=== PATIENT | male | born 1980 | race Caucasian/White ===

== ENCOUNTER 2019-04-11 18:29 | Emergency (ER) | payer BC, OTHER ==
[2019-04-11] MEDS ORDERED: Bacitracin Oint 1 GM U/D Packet TOP ONE (18:34)
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
[2019-04-11] MEDS ORDERED: Diphtheria,Pertussis(Acell),Tetanus Vaccine 0.5 ML Syringe IM ONE (18:51)
--- NOTE | 2019-04-11 19:15 | CR ---
INDICATION: Injury. Pain. FINDINGS: Two views of the right tibia and fibula were obtained. There is no acute fracture seen or dislocation. There are multiple calcific density seen in the subcutaneous tissue anterior to the tibia proximally. IMPRESSION: 1. No acute bone abnormality. 2. Multiple calcifications in the subcutaneous tissue anterior to the proximal tibia. Dictated by Orlin Amezquita MD @ 04/11/2019 7:13:12 PM Dictated by: Orlin Amezquita MD @ 04/11/2019 19:13:18 (Electronically Signed)
== END 2019-04-11 19:15 | disposition home or self-care (01) ==
LOC: MW.ED 18:29
DX: S81.811A Laceration without foreign body, right lower leg, initial encounter (principal); Z23 Encounter for immunization; W26.0XXA Contact with knife, initial encounter; Y93.K9 Activity, other involving animal care
CPT/HCPCS: 12002; 73590; 90471; 90715; 99282; J2001

== ENCOUNTER 2019-04-21 19:30 | Emergency (ER) | payer OTHER | END 2019-04-21 19:55 | LOC: MW.ED 19:30 | DX: Z48.02 Encounter for removal of sutures (principal) | CPT/HCPCS: 99281 ==

== ENCOUNTER 2019-06-12 17:01 | Emergency (ER) | payer OTHER ==
--- NOTE | 2019-06-12 17:57 | EDM.PDOC ---
ED HPI GENERAL MEDICAL PROBLEM - General Chief Complaint: Lower Extremity Injury/Pain Stated Complaint: RT LEG PAIN MIGHT BE BROKEN Time Seen by Provider: 06/12/19 17:42 Source of Information: Reports: Patient History Limitations: Reports: No Limitations - History of Present Illness INITIAL COMMENTS - FREE TEXT/NARRATIVE: HISTORY AND PHYSICAL: History of present illness: Patient is a 38-year-old male who presents to the emergency room with complaints of right foot pain. He states last night he fell asleep in his recliner and when he woke up he noticed some pain in the arch of his right foot. He denies any injury, trauma or falls. Pain is increased with weightbearing and ambulation. He states he has relatively new shoes with good arch support and does not feel that this is at all affecting his pain. He denies any redness, soft tissue swelling, fever/chills or systemic complaints. Review of systems: As per history of present illness and below otherwise all systems reviewed and negative. Past medical history: As per history of present illness and as reviewed below otherwise noncontributory. Surgical history: As per history of present illness and as reviewed below otherwise noncontributory. Social history: See social history for further information Family history: As per history of present illness and as reviewed below otherwise noncontributory. Physical exam: General: Well-developed and well-nourished 38-year-old male. Alert and oriented. Nontoxic-appearing and in no acute distress. HEENT: Atraumatic, normocephalic, pupils equal and reactive bilaterally, negative for conjunctival pallor or scleral icterus, mucous membranes moist, TMs normal bilaterally, throat clear, neck supple, nontender, trachea midline. No drooling or trismus noted. No meningeal signs. No hot potato voice noted. Lungs: Clear to auscultation, breath sounds equal bilaterally, chest nontender. Heart: S1S2, regular rate and rhythm without overt murmur Abdomen: Soft, obese, nontender. Negative for masses or hepatosplenomegaly. Negative for costovertebral tenderness. Skin: Intact, warm, dry. No lesions or rashes noted. Extremities: Atraumatic, moves all extremities per self without difficulty or deficits, negative for cords or calf pain. Neurovascular unremarkable. Neuro: Awake, alert, oriented. Cranial nerves II through XII unremarkable. Cerebellum unremarkable. Motor and sensory unremarkable throughout. Exam nonfocal. Notes: X-ray shows no acute findings. The skin is free of any sign of concerns for infection or gout. Did encourage him to follow-up with podiatry for further evaluation and management. He does have pain which is similar to plantar fasciitis although it is more in the arch of the foot rather than at the base of the calcaneus. I did offer him crutches so he could be nonweightbearing. Supportive care measures were reviewed and discussed. Voices understanding and is agreeable to plan of care. Denies any further questions or concerns at this time. Diagnostics: X-ray Therapeutics: Crutches Prescription: Tramadol Diclofenac Impression: Foot Arch Pain, Left Plan: 1. Rest, ice, elevate the affected extremity. Please wear supportive shoes as directed. Sounds like plantar fasciitis; which will require podiatry follow up. 2. Tylenol and/or Ibuprofen as needed for pain management. 3. Follow up with the lithographing machine operator provider as we discussed. Return to the ED as needed and as discussed. Definitive disposition and diagnosis as appropriate pending reevaluation and review of above. right foot Pain Score (Numeric/FACES): 7 - Related Data Allergies Allergy/AdvReac Type Severity Reaction Status Date / Time No Known Allergies Allergy Verified 06/12/19 17:23 Home Meds: Home Meds . [No Known Home Meds] 04/11/19 [History] Past Medical History Oncologic (Cancer) History: Reports: Colon - Infectious Disease History Infectious Disease History: Reports: Chicken Pox - Past Surgical History HEENT Surgical History: Reports: Adenoidectomy, Tonsillectomy GI Surgical History: Reports: Appendectomy, Colonoscopy, EGD, Other (See Below) Other GI Surgeries/Procedures: hx of colon CA and colon resection Social & Family History - Family History Family Medical History: Noncontributory - Tobacco Use Smoking Status *Q: Never Smoker - Recreational Drug Use Recreational Drug Use: No Review of Systems - Review of Systems Review Of Systems: Comprehensive ROS is negative, except as noted in HPI. ED EXAM, GENERAL - Physical Exam Exam: See Below (See dictation) Course - Vital Signs Last Recorded V/S: Last Vital Signs Temp 96.7 F 06/12/19 17:20 Pulse 93 06/12/19 17:20 Resp 18 06/12/19 17:20 BP 171/99 H 06/12/19 17:20 Pulse Ox 96 06/12/19 17:20 Departure - Departure Time of Disposition: 18:14 Disposition: Home, Self-Care 01 Clinical Impression: Foot arch pain Qualifiers: Laterality: right Qualified Code(s): M79.671 - Pain in right foot - Discharge Information Referrals: PCP,None [Primary Care Provider] - Forms: ED Department Discharge Additional Instructions: The following information is given to patients seen in the emergency department who are being discharged to home. This information is to outline your options for follow-up care. We provide all patients seen in our emergency department with a follow-up referral. The need for follow-up, as well as the timing and circumstances, are variable depending upon the specifics of your emergency department visit. If you don't have a primary care physician on staff, we will provide you with a referral. We always advise you to contact your personal physician following an emergency department visit to inform them of the circumstance of the visit and for follow-up with them and/or the need for any referrals to a consulting specialist. The emergency department will also refer you to a specialist when appropriate. This referral assures that you have the opportunity for follow-up care with a specialist. All of these measure are taken in an effort to provide you with optimal care, which includes your follow-up. Under all circumstances we always encourage you to contact your private physician who remains a resource for coordinating your care. When calling for follow-up care, please make the office aware that this follow-up is from your recent emergency room visit. If for any reason you are refused follow-up, please contact the [facility] Emergency Department at and asked to speak to the emergency department charge nurse. [facility] [address] [place] [id number] [address] Isacc Vallejo, lithographing machine operator [facility] [address] [place] [address] 1. Rest, ice, elevate the affected extremity. Please wear supportive shoes as directed. Sounds like plantar fasciitis; which will require podiatry follow up for further evaluation and treatment/management. 2. Tylenol as needed for pain management. Please take the Diclofenac with food; do not take any decisional NSAIDs with this medication such as ibuprofen or Aleve. 3. Follow up with the lithographing machine operator provider as we discussed. Return to the ED as needed and as discussed. Sepsis Event Note - Evaluation Sepsis Screening Result: No Definite Risk - Focused Exam Vital Signs: Vital Signs Temp Pulse Resp BP Pulse Ox 06/12/19 17:20 96.7 F 93 18 171/99 H 96 Date Exam was Performed: 06/12/19 Time Exam was Performed: 18:24
--- NOTE | 2019-06-12 18:22 | CR ---
Right foot: 2 views of the right foot were obtained. Comparison: No previous study. Calcification is identified within the distal Achilles tendon. Spur is noted off the plantar margin of the calcaneus as well as off the posterior calcaneus at the insertion of the Achilles tendon. Small bony density off the dorsal navicular bone which is a normal variant. Mild joint space narrowing is seen within the 1st MTP joint. No acute fracture or other bony abnormality is seen. Impression: 1. Findings as noted above. 2. Nothing acute is appreciated on 2 view right foot exam. Diagnostic code #2 This report was dictated in [place] Standard Time
== END 2019-06-12 18:39 | disposition home or self-care (01) ==
LOC: MW.ED 17:01
DX: M79.671 Pain in right foot (principal); Z98.890 Other specified postprocedural states; Z90.49 Acquired absence of other specified parts of digestive tract
CPT/HCPCS: 73620-26-RT; 73620-RT; 99283; 99283-25

== ENCOUNTER 2023-02-08 04:09 | Emergency (ER) | payer BC, OTHER ==
[2023-02-08] MEDS ORDERED: Sodium Chloride 0.9% 10 ML Syringe FLUSH PRN (04:38)
[2023-02-08] MEDS ORDERED: Sodium Chloride 0.9% 2.5 ML Syringe FLUSH PRN (04:38)
[2023-02-08] MEDS ORDERED: Sodium Chloride 0.9% 1,000 ML IV ONE (04:38)
[2023-02-08 04:57] LABS: BASOPHILS PERCENT AUTO 0.1 % (0.0-1.5); EOSINOPHILS ABSOLUTE AUTO 0.2 K/uL (0.0-0.7); EOSINOPHILS PERCENT AUTO 3.4 % (0.0-7.0); HEMATOCRIT 41.4 % (38.0-50.0); HEMOGLOBIN 13.5 g/dL (13.0-17.0); LYMPHOCYTES ABSOLUTE AUTO 2.3 K/uL (0.6-2.4); LYMPHOCYTES PERCENT AUTO 32.8 % (16.0-40.0); MEAN CORPUSCULAR HEMOGLOBIN 29.9 pg (27.0-32.0); MEAN CORPUSCULAR HGB CONC 32.6 g/dL (31.0-37.0); MEAN CORPUSCULAR VOLUME 91.6 fL (80.0-98.0); MONOCYTES ABSOLUTE AUTO 1.1 K/uL (0.0-0.8); MONOCYTES PERCENT AUTO 15.6 % (0.0-15.0); NEUTROPHILS ABSOLUTE AUTO 3.4 K/uL (1.4-5.7); NEUTROPHILS PERCENT AUTO 48.1 % (48.0-80.0); NRBC ABSOLUTE 0 K/uL; PLATELET COUNT,PLT 309 K/uL (150-400); RED BLOOD CELL COUNT 4.52 M/uL (4.50-5.90); WHITE BLOOD CELL COUNT,WBC 7.04 K/uL (4.0-11.0)
[2023-02-08 05:20] LABS: A/G RATIO 0.9 (0.9-1.6); ALBUMIN 3.7 g/dL (3.4-5.0); BILIRUBIN TOTAL 0.4 mg/dL (0.2-1.0); CALCIUM 8.6 mg/dL (8.5-10.1); CARBON DIOXIDE,CO2 26.6 mmol/L (21.0-32.0); CREATININE 1.1 mg/dL (0.8-1.3); EST CRCL DRUG DOSING (CG) 92.22 mL/min; POTASSIUM,K 3.4 mmol/L (3.5-5.1)
[2023-02-08 05:22] LABS: BILIRUBIN,URINE NEGATIVE (NEGATIVE); COLOR,URINE YELLOW; GLUCOSE,URINE NEGATIVE (NEGATIVE); KETONES,URINE NEGATIVE (NEGATIVE); LEUKOCYTE ESTERASE,URINE LARGE (NEGATIVE); NITRITE,URINE NEGATIVE (NEGATIVE); OCCULT BLOOD,URINE SMALL (NEGATIVE); PROTEIN,URINE NEGATIVE (NEGATIVE); UROBILINOGEN,URINE 0.2 EU/dL (<2.0)
[2023-02-08 05:25] LABS: APPEARANCE,URINE SLT CLOUDY; BACTERIA,URINE FEW (NEGATIVE); EPITHELIAL CELLS,URINE RARE (NONE-FEW); WBC,URINE 30-40 (0-5/HPF)
[2023-02-08] MEDS ORDERED: cefTRIAXone 1 GM in Sodium Chloride 0.9% 50 ML IV ONE (05:33)
== END 2023-02-08 06:25 | disposition home or self-care (01) ==
LOC: MW.ED 04:09
DX: R33.9 Retention of urine, unspecified (principal)
CPT/HCPCS: 36415; 80053; 81001; 85025; 96361; 96365; 99283; J0696; J3490; J7030

== ENCOUNTER 2024-06-06 10:30 | Emergency (ER) | payer BC ==
[2024-06-06] MEDS: Lidocaine 2% Viscous Solution 15 ML UD PO ONE (10:53)
== END 2024-06-06 11:31 | disposition home or self-care (01) ==
LOC: MW.ED 10:30
DX: R09.A2 Foreign body sensation, throat (principal); Z90.49 Acquired absence of other specified parts of digestive tract; Z75.8 Other problems related to medical facilities and other health care
CPT/HCPCS: 99283; A9270